=== PATIENT | male | born 1980 | race Two or more races ===

== ENCOUNTER 2018-04-03 14:11 | Emergency (ER) | payer SELFPAY ==
--- NOTE | 2018-04-03 14:32 | ED Physician Documentation ---
History of Present Illness - Stated complaint Stated Complaint: ELBOW PX - Chief complaint Chief Complaint: Exposure - History obtained from History obtained from: Patient - History of Present Illness Timing: Today (Mostly right-handed/ambidextrous gentleman had a slip and fall directly onto the right elbow just prior to arrival and has moderate pain but declines pain medication. No other injuries.) Review of Systems Constitutional: reports: Reviewed and negative Cardiac: reports: Reviewed and negative Respiratory: reports: Reviewed and negative : reports: Reviewed and negative PD PAST MEDICAL HISTORY - Present Medications Home Medications: Ambulatory Orders Medication Instructions Recorded Confirmed Hydrocodone/Acetaminophen 1 - 2 each PO Q6H PRN #20 tablet 04/03/18 [Hydrocodon-Acetaminophen 5-325] - Allergies Allergies/Adverse Reactions: Allergies Allergy/AdvReac Type Severity Reaction Status Date / Time No Known Drug Allergies Allergy Verified 04/03/18 14:22 PD ED PE NORMAL - Vitals Vital signs reviewed: Yes - General General: Alert and oriented X 3, No acute distress - Neck Neck: Supple, no meningeal sign, No bony TTP - Extremities Extremities: Other (Right elbow is held in near extension and unable to flex it. There is tenderness over both epicondyles and in the supra condylar area and there is a olecranon effusion.) - Neuro Neuro: Alert and oriented X 3, Normal speech - Psych Psych: Normal mood, Normal affect Results - Vitals Vitals: Vital Signs - 24 hr 04/03/18 14:21 Temperature 36.1 C L Heart Rate 66 Respiratory 16 Rate Blood Pressure 130/77 O2 Saturation 100 Oxygen O2 Source Room air Procedures - Splint (location) RUE Splint applied by: Tech Type of splint: Fiberglass, Long arm, Posterior Other: Patient tolerated well, No complications, Neurovascular intact PD MEDICAL DECISION MAKING - ED course ED course: Case discussed by phone with Dr. Harrington, the orthopedic surgeon who recommended long-arm splinting and follow-up in the clinic. Dr. Harrington called back and did want a CT done for preoperative evaluation. Departure - Departure Disposition: 01 Home, Self Care Clinical Impression: Closed olecranon fracture Qualifiers: Encounter type: initial encounter Laterality: right Qualified Code(s): S52.021A - Displaced fracture of olecranon process without intraarticular extension of right ulna, initial encounter for closed fracture Condition: Stable Record reviewed to determine appropriate education?: Yes Instructions: ED Fx Upper Ext Follow-Up: [facility] [Provider Group] - Within 1 week Prescriptions: Hydrocodone/Acetaminophen [Hydrocodon-Acetaminophen 5-325] 1 - 2 each PO Q6H PRN #20 tablet PRN Reason: pain Comments: Keep the splint on and dry. Do not remove it. Follow-up with the orthopedic surgeon in a week to week and a half. Call Thursday for an appointment. Return for new or worsening symptoms. Do not drink or drive while taking narcotic pain medication. Note that many narcotic pain relievers also contain Tylenol/acetaminophen. Please ensure that your total dose of acetaminophen from all sources does not exceed 3 g (3000 mg) per day. You may get constipated while on this medication. Take a stool softener such as Colace twice a day while you are on it. Also add an [id number] laxative such as senna or MiraLAX on any day that you do not have a bowel movement. If you received a narcotic pain medication or sedative while in the emergency department, do not drive for the next 24 hours.
--- NOTE | 2018-04-03 15:02 | XRAY Report ---
Reason: injury Procedure Date: 04/03/2018 Accession Number: [id number] / [id number] Procedure: XR - Elbow 3 View RT CPT Code: FULL RESULT: EXAM: RIGHT ELBOW RADIOGRAPHY EXAM DATE: 04/03/2018 02:46 PM. CLINICAL HISTORY: Trauma, pain. COMPARISON: None. TECHNIQUE: 3 views. FINDINGS: Bones: Complex comminuted fracture of the proximal ulna with transverse, longitudinal, and oblique fracture lines, including depression of a fragment resulting in a gap in the articular surface of about 9-10 mm. Otherwise unremarkable. Joints: Distention of fat pads. Soft Tissues: Soft tissue swelling. IMPRESSION: Complex proximal ulna fracture with large articular surface gap. RADIA
[2018-04-03 15:40] VITALS: BP 114/71
[2018-04-03] MEDS ORDERED: HYDROcod/ACETAM 5/325 MG TABLET PO STA (16:08)
--- NOTE | 2018-04-03 16:24 | CT Report ---
Reason: Preop for elbow frx Procedure Date: 04/03/2018 Accession Number: [id number] / [id number] Procedure: CT - Upper Extremity Right W/O CPT Code: FULL RESULT: EXAM: RIGHT ELBOW CT WITHOUT CONTRAST EXAM DATE: 04/03/2018 04:02 PM. CLINICAL HISTORY: Preop elbow fracture. COMPARISON: Right elbow radiographs 04/03/2018.. TECHNIQUE: Thin-section axial images were acquired of the elbow without contrast. Post-processing: Coronal and sagittal reformats. Other: None. In accordance with CT protocol optimization, one or more of the following dose reduction techniques were utilized for this exam: automated exposure control, adjustment of mA and/or KV based on patient size, or use of iterative reconstructive technique. FINDINGS: Bones: Comminuted, intra-articular, displaced fracture of the proximal ulna involving the olecranon process and extending through the base of the coronoid process, with 2.7 cm displacement of the proximal olecranon fracture fragment, 1 cm articular surface depression at the central olecranon articular surface, and multiple punctate intra-articular fragments. Large elbow joint effusion. No additional fractures. Joints: Large effusion. No degenerative changes. Musculature: Normal. No fatty atrophy. Other: None. IMPRESSION: Comminuted, intra-articular, displaced fracture of the proximal ulna, as described. No additional fractures. RADIA
== END 2018-04-03 16:17 | disposition home or self-care (01) ==
LOC: ED 14:11
DX: S52.021A Displaced fracture of olecranon process without intraarticular extension of right ulna, initial encounter for closed fracture (principal); W01.10XA Fall on same level from slipping, tripping and stumbling with subsequent striking against unspecified object, initial encounter; W10.9XXA Fall (on) (from) unspecified stairs and steps, initial encounter
CPT/HCPCS: 29105; 73080; 73200; 99283; A9270